=== PATIENT | female | born 1985 | race Two or more races ===

== ENCOUNTER 2022-04-24 01:52 | Emergency (ER) | payer OTHER ==
[~2022-04-24] VITALS: Ht 170.2 cm; Wt 74.8 kg
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
--- NOTE | 2022-04-24 02:05 | NUR ---
SEEN BY DR VENEGAS AT TRIAGE
--- NOTE | 2022-04-24 02:10 | NUR ---
SKIN PREP DONE ON LAC WOUND
[2022-04-24] MEDS ORDERED: HYDROCODONE/APAP 5/325MG TABLET PO ONE (02:30)
[2022-04-24] MEDS ORDERED: HYDROCODONE/APAP 5/325MG TABLET ONE (02:37)
--- NOTE | 2022-04-24 02:52 | NUR ---
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
--- NOTE | 2022-04-24 02:52 | NUR ---
FOR SUTURING OF WOUND BY DR VENEGAS
[2022-04-24] MEDS ORDERED: MELO15TA13 PO (03:52)
--- NOTE | 2022-04-24 04:14 | NUR ---
Patient discharged to home in stable condition. Written and verbal after care instructions given. Patient verbalizes understanding of instruction.
[2022-04-24 04:16] VITALS: BP 96/60
== END 2022-04-24 04:17 | disposition home or self-care (01) ==
LOC: ER 01:55
DX: S01.81XA Laceration without foreign body of other part of head, initial encounter (principal); V49.9XXA Car occupant (driver) (passenger) injured in unspecified traffic accident, initial encounter; Y93.89 Activity, other specified; Y92.89 Other specified places as the place of occurrence of the external cause; Y99.8 Other external cause status
CPT/HCPCS: 73590-TC